=== PATIENT | male | born 1995 | race Caucasian/White ===

== ENCOUNTER 2020-06-04 02:02 | Emergency (ER) | payer SELFPAY ==
[~2020-06-04] VITALS: Ht 182.9 cm; Wt 118.0 kg
[2020-06-04 02:08] VITALS: BP 126/86
== END 2020-06-04 05:10 | disposition home or self-care (01) ==
LOC: ER 02:58
DX: S01.511A Laceration without foreign body of lip, initial encounter (principal); X58.XXXA Exposure to other specified factors, initial encounter; Y93.89 Activity, other specified; Y92.89 Other specified places as the place of occurrence of the external cause; Y99.8 Other external cause status
CPT/HCPCS: 99283